=== PATIENT | male | born 1970 | race Asian ===

== ENCOUNTER 2017-11-12 13:13 | Emergency (ER) | payer BC ==
[2017-11-12 13:18] VITALS: BP 160/80; PULSE 100; TEMP 98.4; BMI 29.8
[2017-11-12] MEDS ORDERED: ACETAMINOPHEN 325 MG TABLET (FP) PO ONE (14:25)
--- NOTE | 2017-11-12 14:30 | PDOC ---
History of Present Illness - General Chief Complaint: Cold Symptoms Stated Complaint: CHILLS, COUGH Time Seen by Provider: 11/12/17 14:03 History Source: Patient - History of Present Illness Timing/Duration: reports: yesterday Associated Symptoms: reports: cough, fever/chills, muscle aches. denies: earache, shortness of breath, sore throat Past History - Past Medical History Allergies/Adverse Reactions: Allergies Allergy/AdvReac Type Severity Reaction Status Date / Time No Known Allergies Allergy Verified 11/12/17 13:17 Home Medications: Ambulatory Orders NK [No Known Home Medication] 11/12/17 - Suicide/Smoking/Psychosocial Hx Smoking History: Never smoked Have you smoked in the past 12 months: No Information on smoking cessation initiated: No Hx Alcohol Use: No Drug/Substance Use Hx: No Review of Systems - Review of Systems Constitutional: Yes: Fever HEENTM: No: Ear Pain, Throat Pain Respiratory: Yes: Cough. No: Shortness of Breath, Wheezing *Physical Exam - Vital Signs Last Vital Signs Temp Pulse Resp BP Pulse Ox 98.4 F 100 H 20 160/80 100 11/12/17 13:15 11/12/17 13:15 11/12/17 13:15 11/12/17 13:15 11/12/17 13:15 - Physical Exam General Appearance: Yes: Appropriately Dressed. No: Apparent Distress HEENT: positive: Normal ENT Inspection, Normal Voice. negative: Scleral Icterus (R), Scleral Icterus (L) Neck: positive: Supple. negative: Lymphadenopathy (R), Lymphadenopathy (L) Respiratory/Chest: positive: Lungs Clear, Normal Breath Sounds. negative: Respiratory Distress Cardiovascular: positive: Regular Rate, S1, S2 Integumentary: positive: Dry, Warm Neurologic: positive: Fully Oriented, Alert, Normal Mood/Affect Medical Decision Making - Medical Decision Making 11/12/17 14:28 47-year-old female, history of diabetes, HTN, here with body aches, malaise, dry cough and subjective fever since yesterday morning. No shortness of breath , chest pain, abdominal pain, nausea, vomiting or diarrhea. No known sick contacts or recent travel. Pt was seen by pmd and referred to ED to r/o flu. Patient well ratna, in NAD, stable w/ unremarkable exam. Most likely viral syndrome, rule out flu. Pain control in ED. 11/12/17 15:22 Flu negative. Will discharge with supportive treatment and PMD follow-up as needed *DC/Admit/Observation/Transfer Diagnosis at time of Disposition: Viral syndrome - Discharge Dispostion Disposition: HOME Condition at time of disposition: Good - Referrals - Patient Instructions Printed Discharge Instructions: DI for Viral Syndrome Additional Instructions: You have a viral illness but not the flu. Rest, drink plenty of fluids and take Motrin or Tylenol as needed for pain and/or fever. If symptoms worsen, return to the ED, otherwise follow-up with your doctor as needed - Post Discharge Activity Forms/Work/School Notes: Back to Work
== END 2017-11-12 15:25 | disposition home or self-care (01) ==
LOC: JERFT 13:13
DX: B34.9 Viral infection, unspecified (principal); I10 Essential (primary) hypertension; E11.9 Type 2 diabetes mellitus without complications
CPT/HCPCS: 87804; 99281-25